=== PATIENT | male | born 1940 | race African-American/Black ===

== ENCOUNTER → 2018-05-27 | Outpatient (CLI) | payer MEDICARE, OTHER ==
[2018-05-30 15:37] LABS: A/G RATIO 1.1 (0.7-1.7); ALBUMIN 2 3.8 g/dL (2.9-4.4); ALPHA-2-GLOBULIN 2 0.5 g/dL (0.4-1.0); BETA GLOBULINS 1.5 g/dL (0.7-1.3); GAMMA GLOBULIN 1.2 g/dL (0.4-1.8); GLOBULIN TOTAL 3.4 g/dL (2.2-3.9); MONOCLONAL SPIKE Not Observed g/dL (Not Observ); PROTEIN TOTAL SERUM 7.2 g/dL (6.0-8.5)
== END ==
LOC: OD 09:36
PROVIDERS: ATTEND Internal Medicine Geriatric Medicine
DX: R80.9 Proteinuria, unspecified (principal)
CPT/HCPCS: 36415; 84165; 84166

== ENCOUNTER 2018-05-29 21:09 | Emergency (ER) | payer MEDICARE, OTHER ==
--- NOTE | 2018-05-29 21:45 | ER Document Report ---
ED Medical Screen (RME) - General Chief Complaint: Lower Abdominal Pain Stated Complaint: LOWER ABDOMINAL PAIN Time Seen by Provider: 05/29/18 21:42 Primary Care Provider: YUKO CARROLL MD [Primary Care Provider] - Follow up as needed Notes: 77-year-old male with chief complaint of right sided abdominal pain. Earlier in the evening the pain was very severe, he still has some pain but states it is not as sharp. No vomiting or fever. He states it felt like he got his balls kicked into his guts. He has had a prostatectomy and has a suprapubic catheter. He also reports a history of diverticulosis. TRAVEL OUTSIDE OF THE [place] IN LAST 30 DAYS: No - Related Data Allergies/Adverse Reactions: No Known Allergies Allergy (Verified 12/11/15 09:50) Past Medical History - Past Medical History Cardiac Medical History: Reports: Hx Hypercholesterolemia Denies: Hx Heart Attack, Hx Hypertension Pulmonary Medical History: Denies: Hx Asthma, Hx Tuberculosis Neurological Medical History: Denies: Hx Cerebrovascular Accident, Hx Seizures Renal/ Medical History: Denies: Hx Peritoneal Dialysis Malignancy Medical History: Reports Hx Prostate Cancer GI Medical History: Reports: Hx Gastroesophageal Reflux Disease. Denies: Hx Hepatitis, Hx Hiatal Hernia, Hx Ulcer Musculoskeltal Medical History: Reports Hx Arthritis Infectious Medical History: Denies: Hx Hepatitis Past Surgical History: Reports: Hx Herniorrhaphy, Hx Orthopedic Surgery - rigth shoulder, left knee, Hx Urinary Tract Surgery - suprapubic catherter. Denies: Hx Open Heart Surgery, Hx Pacemaker - Immunizations Immunizations up to date: Yes Hx Diphtheria, Pertussis, Tetanus Vaccination: Yes Physical Exam - Vital signs Vitals: Temp Pulse Resp BP Pulse Ox 98.7 F 58 L 20 111/63 97 05/29/18 21:33 05/29/18 21:33 05/29/18 21:33 05/29/18 21:33 05/29/18 21:33 - Abdominal Tenderness: Tender - Tender in the general lower abdomen - Genitourinary Inspection: Normal Tenderness: Nontender. No: Testicle tender, Epididymis tender Cremasteric reflex: Normal Scrotum: No: Swelling, Redness, Hot to touch Course - Vital Signs Vital signs: Temp Pulse Resp BP Pulse Ox 98.7 F 58 L 20 111/63 97 05/29/18 21:33 05/29/18 21:33 05/29/18 21:33 05/29/18 21:33 05/29/18 21:33 Doctor's Discharge - Discharge Referrals: YUKO CARROLL MD [Primary Care Provider] - Follow up as needed
[2018-05-29 22:09] LABS: ABSOLUTE EOSINOPHILS # (AUTO) 0.1 10^3/uL (0.0-0.6); ABSOLUTE LYMPHOCYTES (AUTO) 1.1 10^3/uL (0.5-4.7); ABSOLUTE MONOCYTES (AUTO) 0.4 10^3/uL (0.1-1.4); ABSOLUTE NEUT (AUTO) 6.6 10^3/uL (1.7-8.2); BASOPHILS % (AUTO) 0.5 % (0-2); HEMATOCRIT 34.6 % (37.9-51.0); HEMOGLOBIN 11.9 g/dL (13.5-17.0); LYMPHOCYTES % (AUTO) 13.7 % (13-45); MEAN CORPUSCULAR HEMOGLOBIN 29.5 pg (27.0-33.4); MEAN CORPUSCULAR HGB CONC 34.2 g/dL (32.0-36.0); MEAN CORPUSCULAR VOLUME 86 fl (80-97); MONOCYTES % (AUTO) 4.5 % (3-13); PLATELET COUNT 228 10^3/uL (150-450); RED BLOOD COUNT 4.02 10^6/uL (4.35-5.55); RED CELL DISTRIBUTION WIDTH 14.5 % (11.5-14.0); SEGMENTED NEUTROPHILS % (AUTO) 80.3 % (42-78); TOTAL CELLS COUNTED % (AUTO) 100 %; WHITE BLOOD COUNT 8.2 10^3/uL (4.0-10.5)
[2018-05-29 22:23] LABS: ALANINE AMINOTRANSFERASE 15 U/L (21-72); ALBUMIN 4.4 g/dL (3.5-5.0); ALKALINE PHOSPHATASE 58 U/L (38-126); ANION GAP 8 (5-19); ASPARTATE AMINO TRANSFERASE 22 U/L (17-59); BILIRUBIN,DIRECT 0.3 mg/dL (0.0-0.4); BILIRUBIN,TOTAL 0.3 mg/dL (0.2-1.3); BLOOD UREA NITROGEN 22 mg/dL (7-20); CALCIUM 10.1 mg/dL (8.4-10.2); CARBON DIOXIDE 27 mmol/L (22-30); CHLORIDE 107 mmol/L (98-107); GLUCOSE 106 mg/dL (75-110); POTASSIUM 4.4 mmol/L (3.6-5.0); SODIUM 141.9 mmol/L (137-145); TOTAL PROTEIN 8.2 g/dL (6.3-8.2)
--- NOTE | 2018-05-29 23:28 | RADIOLOGY REPORT (SQ) ---
CT ABDOMEN PELVIS WITH IV CONTRAST EXAM DATE: 05/29/2018 21:43 HISTORY: Right-sided abdominal pain. COMPARISON: 05/25/2014 TECHNIQUE: CT scan of the abdomen and pelvis was performed with IV contrast. This exam was performed according to our departmental dose-optimization program, which includes automated exposure control, adjustment of the mA and/or kV according to patient size and/or use of iterative reconstruction technique. FINDINGS: The lung bases are clear. No pleural or pericardial effusions. There is no hiatal hernia. The liver, spleen, pancreas, and adrenal glands are normal. The gallbladder is contracted, limiting evaluation. There are multiple peripelvic cysts in both kidneys, left greater than right. No obstructing urinary stones are seen. A Lopez catheter is seen in the bladder. No small bowel obstruction. The appendix is normal. There is no evidence of diverticulitis. No intraperitoneal free fluid or free air is identified. The aorta is normal caliber and contains atherosclerotic calcifications. There are mild degenerative changes of the spine. 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 IMPRESSION: 1. No obstructing urinary stones are identified. Bilateral peripelvic cysts. 2. Normal appendix.
--- NOTE | 2018-05-30 00:42 | ER Document Report ---
Addendum entered and electronically signed by LORETA PEARL PA-C 06/02/18 15:36: Course - Re-evaluation Re-evalutation: 06/02/18 15:35 This is an addendum to this patient's chart. I am Loreta Pearl physician delinquent tax collector assistant working ER today most approached by the ER charge nurse who has requested that the patient Dr. Gaines saw had a positive culture come back for the urine and had actually had 3 organisms to include Pseudomonas in the sample. Sensitivity showed that all 3 organisms were sensitive to Levaquin so we contacted the pharmacy had a prescription printed out for 7 days of 500 mg level p.o. This patient had a suprapubic cath in place of probably part of it is colonization but he was sensitive to almost everything so we went ahead and treated him - Vital Signs Vital signs: Temp Pulse Resp BP Pulse Ox 97.9 F 50 L 15 122/70 100 05/30/18 01:55 05/30/18 01:55 05/30/18 01:55 05/30/18 01:55 05/30/18 01:55 - Laboratory Result Diagrams: 05/29/18 21:52 05/29/18 21:52 Laboratory results interpreted by me: 05/29/18 05/29/18 05/30/18 21:52 21:52 00:32 RBC 4.02 L Hgb 11.9 L Hct 34.6 L RDW 14.5 H Seg Neutrophils % 80.3 H BUN 22 H Creatinine 1.30 H Est GFR (Non-Af Amer) 54 L ALT 15 L Urine Blood SMALL H Ur Leukocyte Esterase LARGE H Addendum entered and electronically signed by LORETA PEARL PA-C 06/02/18 15:34: Discharge - Discharge Clinical Impression: Abdominal pain Qualifiers: Abdominal location: lower abdomen, unspecified Qualified Code(s): R10.30 - Lower abdominal pain, unspecified Condition: Good Disposition: HOME, SELF-CARE Additional Instructions: CT scan of your abdomen did not show any concerning findings. Ultrasound of the testicles was normal. The exact cause of why you sometimes have the sudden onset of pain is not 100% clear. At this time I feel you are safe to be discharged home. Please follow-up with your doctor for reevaluation. We sent your urine culture to make sure is no evidence of infection. If there is evidence of infection will call you in a prescription for treatment. Please return to ER immediately if you have recurrent worsening pain, fevers, or feel unwell. Prescriptions: Levofloxacin [Levaquin 500 mg Tablet] 500 mg PO DAILY #7 tablet Referrals: YUKO CARROLL MD [Primary Care Provider] - Follow up as needed Original Note: ED General - General Chief Complaint: Lower Abdominal Pain Stated Complaint: LOWER ABDOMINAL PAIN Time Seen by Provider: 05/29/18 21:42 Notes: Patient is a 77-year-old male who presents with complaint of pain that was in the suprapubic region and radiate into his testicles. He said he felt as if someone kicked him in his testicles. He has a suprapubic catheter. He has history of prostate cancer with prostatectomy. He says that he has had this pa in several times in the past. Says he will come on suddenly and sometimes is bearable but this time is very severe. Currently the pain has improved. No fevers. No vomiting. No other complaints at this time. TRAVEL OUTSIDE OF THE [place] IN LAST 30 DAYS: No - Related Data Allergies/Adverse Reactions: No Known Allergies Allergy (Verified 12/11/15 09:50) Past Medical History - Social History Smoking Status: Unknown if Ever Smoked Frequency of alcohol use: None Drug Abuse: None Family History: Reviewed & Not Pertinent Patient has suicidal ideation: No Patient has homicidal ideation: No - Past Medical History Cardiac Medical History: Reports: Hx Hypercholesterolemia Denies: Hx Heart Attack, Hx Hypertension Pulmonary Medical History: Denies: Hx Asthma, Hx Tuberculosis Neurological Medical History: Denies: Hx Cerebrovascular Accident, Hx Seizures Renal/ Medical History: Denies: Hx Peritoneal Dialysis Malignancy Medical History: Reports Hx Prostate Cancer GI Medical History: Reports: Hx Gastroesophageal Reflux Disease. Denies: Hx Hepatitis, Hx Hiatal Hernia, Hx Ulcer Musculoskeletal Medical History: Reports Hx Arthritis Infectious Medical History: Denies: Hx Hepatitis Past Surgical History: Reports: Hx Herniorrhaphy, Hx Orthopedic Surgery - rigth shoulder, left knee, Hx Urinary Tract Surgery - suprapubic catherter. Denies: Hx Open Heart Surgery, Hx Pacemaker - Immunizations Immunizations up to date: Yes Hx Diphtheria, Pertussis, Tetanus Vaccination: Yes Review of Systems - Review of Systems Notes: My Normal Review Basic REVIEW OF SYSTEMS: CONSTITUTIONAL : Denies fever, chills, or sweats. Denies recent illness. RESPIRATORY: Denies cough, cold, or chest congestion. Denies shortness of breath, difficulty breathing, or wheezing. GASTROINTESTINAL: Suprapubic abdominal pain. Denies nausea, vomiting GENITOURINARY: Testicular pain MUSCULOSKELETAL: Denies neck or back pain or joint pain or swelling. SKIN: Denies rash or skin lesions. NEUROLOGICAL: Denies altered mental status or loss of consciousness. Denies headache. Denies weakness or paralysis or loss of use of either side. Denies problems with gait or speech. Denies sensory or motor loss. ALL OTHER SYSTEMS REVIEWED AND NEGATIVE. Physical Exam - Vital signs Vitals: Temp Pulse Resp BP Pulse Ox 98.7 F 58 L 20 111/63 97 05/29/18 21:33 05/29/18 21:33 05/29/18 21:33 05/29/18 21:33 05/29/18 21:33 - Notes Notes: General Appearance: Well nourished, alert, cooperative, no acute distress, no obvious discomfort. Well-appearing Vitals: reviewed, See vital signs table. Eyes: PERRL, EOMI, Conjuctiva clear Lungs: No wheezing, No rales, No rhonci, No accessory muscle use, good air exchange bilaterally. Heart: Normal rate, Regular rythm, No murmur, no rub Abdomen: Normal BS, soft, No rigidity, mild lower abdominal tenderness palpation, No guarding, no rebound, no abdominal masses, no organomegaly. Prepubic catheter in place. Site looks good without signs of infection. Genitalia: Mild soreness to palpation of bilateral testicles. No redness or inflammation. Extremities: strength 5/5 in all extremities, good pulses in all extremities, no swelling or tenderness in the extremities, no edema. Skin: warm, dry, appropriate color, no rash Neuro: speech clear, oriented x 3, normal affect, responds appropriately to questions. Course - Re-evaluation Re-evalutation: 05/30/18 01:38 Ultrasound does not show any concerning findings. I did obtain ultrasound of the testicle patient complains of pain that was going into his testicles. On exam he looks well. If he safe to be discharged home. The exact cause of his pain is unclear. This appears to be a chronic intermittent pain as he says his had this happen to him several times before but the etiology is just unclear. At this time will discharge patient home but strongly encouraged him return to ER if he has recurrent worsening pain, fevers, or feels unwell. Urinalysis does show some white blood cells however the patient does have a suprapubic catheter so this is typically a chronic finding in people with suprapubic catheter. We will therefore send his urine for culture before considering placing him on antibiotics. Dictation of this chart was performed using voice recognition software; therefore, there may be some unintended grammatical errors. - Vital Signs Vital signs: Temp Pulse Resp BP Pulse Ox 98.7 F 58 L 20 111/63 97 05/29/18 21:33 05/29/18 21:33 05/29/18 21:33 05/29/18 21:33 05/29/18 21:33 - Laboratory Result Diagrams: 05/29/18 21:52 05/29/18 21:52 Laboratory results interpreted by me: 05/29/18 05/29/18 05/30/18 21:52 21:52 00:32 RBC 4.02 L Hgb 11.9 L Hct 34.6 L RDW 14.5 H Seg Neutrophils % 80.3 H BUN 22 H Creatinine 1.30 H Est GFR (Non-Af Amer) 54 L ALT 15 L Urine Blood SMALL H Ur Leukocyte Esterase LARGE H Discharge - Discharge Clinical Impression: Abdominal pain Qualifiers: Abdominal location: lower abdomen, unspecified Qualified Code(s): R10.30 - Lower abdominal pain, unspecified Condition: Good Disposition: HOME, SELF-CARE Additional Instructions: CT scan of your abdomen did not show any concerning findings. Ultrasound of the testicles was normal. The exact cause of why you sometimes have the sudden onset of pain is not 100% clear. At this time I feel you are safe to be discharged home. Please follow-up with your doctor for reevaluation. We sent your urine culture to make sure is no evidence of infection. If there is evidence of infection will call you in a prescription for treatment. Please return to ER immediately if you have recurrent worsening pain, fevers, or feel unwell.
[2018-05-30 00:48] LABS: APPEARANCE,URINE SLIGHTLY-CLOUDY; BILIRUBIN,URINE NEGATIVE (NEGATIVE); COLOR,URINE YELLOW; GLUCOSE, URINE NEGATIVE (NEGATIVE); KETONES,URINE NEGATIVE (NEGATIVE); LEUKOCYTE ESTERASE,URINE LARGE (NEGATIVE); NITRITE,URINE NEGATIVE (NEGATIVE); PROTEIN,URINE NEGATIVE (NEGATIVE); URINE SPECIFIC GRAVITY 1.032; UROBILINOGEN,URINE NEGATIVE mg/dL (<2.0)
--- NOTE | 2018-05-30 01:34 | RADIOLOGY REPORT (SQ) ---
CLINICAL HISTORY: testicular pain COMPARISON: None. TECHNIQUE: US SCROTUM on 05/29/2018 11:57 PM CDT FINDINGS: Right testicle measures 3.3 x 2.0 x 2.9 cm and is normal in echotexture with patent flow. There is a small hydrocele. The right epididymis measures 1.2 cm. Left testicle measures 2.6 x 2.1 x 2.5 cm and is normal in echotexture with patent flow. There is a small hydrocele. The left epididymis measures 1.3 cm. IMPRESSION: Small bilateral hydroceles. No evidence of torsion or testicular mass.
[2018-05-30 01:56] VITALS: BP 122/70
== END 2018-05-30 01:55 | disposition home or self-care (01) ==
LOC: ER 21:09
DX: R10.30 Lower abdominal pain, unspecified (principal); N50.812 Left testicular pain; N50.811 Right testicular pain; Z85.46 Personal history of malignant neoplasm of prostate; Z90.79 Acquired absence of other genital organ(s)
CPT/HCPCS: 36415; 74177; 76870; 80053; 81001; 85025; 87086; 87088; 87186; 93976; 99284